=== PATIENT | male | born 1960 | race Caucasian/White ===

== ENCOUNTER 2024-07-04 23:28 | Emergency (ER) | payer MEDICARE, MEDICAID, SELFPAY ==
[2024-07-04 23:38] VITALS: PULSE 89; RESP 18; O2SAT 97; BMI 27.6
[2024-07-04 23:46] VITALS: BP 151/88; PULSE 98; RESP 18; TEMP 36.9; O2SAT 96
--- NOTE | 2024-07-05 00:43 | PD.EDADULT ---
ED General RME/HPI General Chief complaint: Psychiatric Symptoms Stated complaint: DEPRESSION Time Seen by Provider: 07/05/24 00:43 Arrival date/time: 07/04/24 23:28 RME / HPI RME / HPI narrative: This section includes all my notes and documentations, including HPI, PE, and ED course. James Mcneal MD HPI: 63yo male with a history of schizoeffective depression, bipolar disorder, HTN, HLD BIBA from [facility] presents to the ED for a chief complaint of SI. Patient states he was discharged from a psychiatric facility yesterday morning. He states I want to get placed into a long-term psychiatric facility . He endorses he wants to harm himself by cutting his wrists or running in front of a car on the highway. He endorses having occasional auditory hallucinations. Denies any HI or visual hallucinations. No other complaints reported. ROS: All negative except as documented in HPI. Physical Exam: General: Alert and oriented. Eyes: Conjunctivae and lids clear. PERRL. EOMI. ENT: No nasal congestion. Neck: Supple. Heart: RRR. Lungs: No respiratory distress. Good air movement. No rhonchi, wheezing, rales. Abdomen: Soft and nontender. Legs: No clubbing, cyanosis, edema. Skin: Warm and dry. Neuro: Alert and oriented X 3. Cranial nerves II to XII grossly normal. No peripheral motor deficits. I reviewed all diagnostic test results. Blood tests and urine tests unremarkable. At this point, diagnoses include suicidal ideation. Patient requested help with headache, he was given ibuprofen. Patient requested help with insomnia, he was given Ativan and Benadryl. Patient is medically clear for psychiatric evaluation. At 6 AM on 07/05/2024, the care of the patient was transferred to Dr. PRIETO. James Mcneal MD Related Data Home Medications ?Medication ?Instructions ?Recorded ?Confirmed trazodone 100 mg tablet 300 mg PO HS 12/09/20 01/31/24 lisinopril 10 mg tablet 10 mg PO QAM 01/31/24 01/31/24 olanzapine 10 mg tablet 10 mg PO QDAY 01/31/24 01/31/24 olanzapine 10 mg tablet 20 mg PO QPM 01/31/24 01/31/24 venlafaxine 150 mg 150 mg PO QAM 01/31/24 01/31/24 capsule,extended release 24 hr Allergies Allergy/AdvReac Type Severity Reaction Status Date / Time fluphenazine (From Prolixin) Allergy Severe Swelling Verified 06/06/23 17:43 of Lip/Tongue/Throat haloperidol (From Haldol) Allergy Severe CRIPPLES Verified 06/06/23 17:43 ME Review of Systems Review of Systems Systems Reviewed: All systems reviewed, normal except as documented Past Medical History Past Medical History NEUROLOGIC: Negative Neurological Disorders or Seizures CARDIAC: Positive Cardiac Disorders, Hypercholesterolemia and Hypertension; Negative Congestive Heart Failure RESPIRATORY: Positive Sleep Apnea; Negative Chronic Obstructive Pulmonary Disease (COPD) GASTROINTESTINAL: Positive Gastrointestinal Disorders GENITOURINARY: Negative Genitourinary Disorders or Renal Disease MUSCULOSKELETAL: Negative Musculoskeletal Disorders ENT: Positive Deafness ENDOCRINE: Negative Endocrine Disorders, Diabetes Mellitus Type 1 or Diabetes Mellitus Type 2 HEMATOLOGIC: Negative Blood Disorders PSYCHO/SOCIAL: Positive Schizophrenia, Bipolar Disorder, Depression and Anxiety OTHER HISTORY: Negative Blood Transfusions, Blood Transfusion Reaction, Anesthesia Reactions or Cancer Family History FAMILY HISTORY: Negative Family Cardiac Disorders Social History SMOKING STATUS: Light (< 1 pack/day) ED Exam Narrative Physical exam: As noted in HPI. Course Quality Measures none Orders Category Date Time Status 1799 [1799 Psychiatric Hold] NOW Care 07/05/24 00:45 Ordered Referral Psych Eval Stat Cons 07/05/24 00:43 Active Acetaminophen Stat Lab 07/05/24 01:06 Completed Alcohol, Blood Medical Stat Lab 07/05/24 01:06 Completed CBC Stat Lab 07/05/24 01:06 Completed CMP [Comprehensive Metabolic Panel] Stat Lab 07/05/24 01:06 Completed Drug Screen,Urine Stat Lab 07/05/24 01:03 Completed Free T4 (Free Thyroxine) Stat Lab 07/05/24 01:06 Completed Magnesium Stat Lab 07/05/24 01:06 Completed Salicylate Stat Lab 07/05/24 01:06 Completed TSH [Thyroid Stimulating Hormone] Stat Lab 07/05/24 01:06 Completed UA, C/S IF [Urinalysis, C/S if Indicated] Stat Lab 07/05/24 01:03 Completed DiphenhydrAMINE [Benadryl] Med 07/05/24 01:09 Discontinued 50 mg PO X1 ONE Ibuprofen Tab [Motrin Tab] Med 07/05/24 04:13 Once 800 mg PO X1 ONE LORazepam [Ativan] Med 07/05/24 01:09 Discontinued 2 mg PO X1 ONE Vital Signs Vital signs: Vital Signs Temperature 98.4 F 07/04/24 23:46 Pulse Rate 98 07/04/24 23:46 Respiratory Rate 18 07/04/24 23:46 Blood Pressure 151/88 H 07/04/24 23:46 Pulse Oximetry (%) 96 07/04/24 23:46 Oxygen Delivery Method Room Air 07/04/24 23:46 [facility] Patient data External records reviewed:: [facility] previous records (Per chart review, patient was seen here on 01/31/24 for suicidal ideation.) Clinical information provided by:: patient Social determinants that could affect healthcare access:: mental health Patient has the following chronic illnesses:: schizoeffective depression, bipolar disorder, HTN, HLD How is presenting disease/condition affected by chronic disease/condition?: caused by Evaluation data The following diagnostics were reviewed and interpreted by me:: lab results Lab and/or radiology exams considered but not ordered:: none Interpretation Summary: Normal diagnostics. Medications Medications considered but not ordered:: none Medication administrations:: Medication Administration History Ibuprofen (Ibuprofen Tab 400 Mg Tablet) 800 mg PO X1 ONE Stop: 07/05/24 04:14 Discontinued Medications Diphenhydramine HCl (Diphenhydramine 25 Mg Capsule) 50 mg PO X1 ONE Stop: 07/05/24 01:10 Last Admin: 07/05/24 01:26 Dose: 50 mg Documented By: RB Lorazepam (Lorazepam 0.5 Mg Tablet) 2 mg PO X1 ONE Stop: 07/05/24 01:10 Last Admin: 07/05/24 01:26 Dose: 2 mg Documented By: MICHELA Ibuprofen and Ativan and Benadryl Consultations Consultation(s) initiated? (list below): No Diagnosis Differential Diagnosis ED Complaint MDM: SI, HI, acute psychosis, schizoaffective disorder, avery, substance abuse Most likely diagnosis given after review of the tests above:: Suicidal ideation Admission Indicated Admission indicated?: not indicated Explain why admission is indicated or not indicated:: No psychiatric service here. Admission Request Was there a request for admission?: No Disposition Plan Disposition Plan: other (specify) (Care of the patient was transferred to Dr. PRIETO.) Medical Decision Making Differential Diagnosis Differential Diagnosis: SI, HI, acute psychosis, schizoaffective disorder, avery, substance abuse Lab Data 07/05/24 01:06 07/05/24 01:06 Labs: Lab Results 07/05/24 07/05/24 Range/Units 01:03 01:06 WBC 8.9 (3.8-10.6) Thou/mm3 RBC 5.08 (4.50-5.90) Miln/mm3 Hgb 14.8 (13.5-16.0) g/dL Hct 41.9 (41.0-53.0) % MCV 83 (80-100) fL MCH 29.1 (25.0-35.0) pg MCHC 35.3 (31.0-37.0) g/dl RDW Std Deviation 39.7 (35.1-43.9) fL Plt Count 221 (140-440) Thou/mm3 Neut % (Auto) 66 (37-80) % Lymph % (Auto) 20 (10-50) % [place] % (Auto) 10 (0-12) % Eos % (Auto) 3 (0-10) % Baso % (Auto) 0 (0-2.5) % Neut # (Auto) 5.9 (1.8-7.7) Thou/mm3 Lymph # (Auto) 1.8 (1.0-4.8) Thou/mm3 [place] # (Auto) 0.9 H (0.0-0.8) Thou/mm3 Eos # (Auto) 0.2 (0.0-0.5) Thou/mm3 Baso # (Auto) 0.0 (0.0-0.2) Thou/mm3 Immature Gran # (Auto) 0.03 H (0.00-0.00) Thou/mm3 Absolute Nucleated RBC 0.00 (0.00-0.00) Thou/mm3 Immature Gran % 0 (0-0) % Nucleated RBC % 0 (0) /100 WBC Sodium 136 (136-145) mMol/L Potassium 3.8 (3.4-5.1) mMol/L Chloride 103 (98-107) mMol/L Carbon Dioxide 22.1 (20.0-31.0) mMol/L Anion Gap 11 (7-16) BUN 10 (9-23) mg/dL Creatinine 0.8 (0.6-1.3) mg/dL Estim Creat Clear Calc 95.7 (>60) mL/min eGFR > 60 (60 - ) See Note BUN/Creatinine Ratio 13 (12-20) Ratio Glucose 118 H (74-106) mg/dL Calculated Osmolality 271 L (275-295) Calcium 9.0 (8.3-10.6) mg/dL Corrected Calcium 9.0 (8.5-10.1) mg/dL Magnesium 1.8 (1.6-2.6) mg/dL Total Bilirubin 0.5 (0.3-1.2) mg/dL AST 18 (0-34) U/L ALT 23 (10-49) U/L Alkaline Phosphatase 121 H (46-116) U/L Total Protein 7.2 (5.7-8.2) gm/dL Albumin 4.1 (3.4-4.8) gm/dL Globulin 3.1 (2.3-3.5) gm/dL Albumin/Globulin Ratio 1.3 (1.2-2.2) TSH 2.23 (0.55-4.78) uIU/mL Free T4 1.23 (0.89-1.76) ng/dL Ur Collection Type Clean Catch Urine Color Lt-Yellow (Lt Yel-Yel) Urine Clarity Clear (Clear/Hazy) Urine pH 6.0 (5.0-7.0) Ur Specific [place] 1.009 (1.001-1.035) Urine Protein Negative (Neg - Trace) Urine Glucose (UA) Negative (Negative) Urine Ketones Negative (Negative) Urine Blood Negative (Negative) Urine Nitrite Negative (Negative) Urine Bilirubin Negative (Negative) Urine Urobilinogen (Auto) Negative (0.0-1.0) mg/dL Ur Leukocyte Esterase Negative (Negative) Urine RBC 2 (0-3) /hpf Urine WBC 1 (0-5) /hpf Ur Squamous Epith Cells 0 (0-5) /hpf Urine Bacteria None (None) Ur Culture Indicated? Not Indicated Salicylates < 3.0 mg/dL Urine Opiates Screen Negative (Negative) Urine Fentanyl Screen Negative (Negative) Acetaminophen < 2.0 L (10.0-20.0) mcg/mL Ur Barbiturates Screen Negative (Negative) U Amphetamin/Meth Scrn Negative (Negative) U Benzodiazepines Scrn Negative (Negative) U Cocaine Metab Screen Negative (Negative) U Marijuana (THC) Screen Negative (Negative) Ethyl Alcohol 14.6 H (0-10.0) mg/dL Discharge Plan Prescriptions/Referrals Prescriptions/Med Rec: No Action trazodone 100 mg tablet 300 mg PO HS venlafaxine 150 mg capsule,extended release 24hr 150 mg PO QAM olanzapine 10 mg tablet 20 mg PO QPM olanzapine 10 mg tablet 10 mg PO QDAY lisinopril 10 mg tablet 10 mg PO QAM Referrals: Claudia Vogel PA-C [Primary Care Provider] - In 1 week Problem List Clinical Impression: Suicidal ideation Patient/Caregiver Discharge Instructions Print Language: Martiniquais
[2024-07-05 01:12] LABS: Collection Type, Urine Clean Catch; Squamous Epithelial Cell,Urine 0 /hpf (0-5)
[2024-07-05 01:16] LABS: Basophils % (Auto) 0 % (0-2.5); Eosinophils # (Auto) 0.2 Thou/mm3 (0.0-0.5); Eosinophils % (Auto) 3 % (0-10); Hematocrit 41.9 % (41.0-53.0); Hemoglobin 14.8 g/dL (13.5-16.0); Immature Granulocytes % (Auto) 0 % (0-0); Immature Granulocytes Auto 0.03 Thou/mm3 (0.00-0.00); Lymphocytes # (Auto) 1.8 Thou/mm3 (1.0-4.8); Lymphocytes % (Auto) 20 % (10-50); Mean Corpuscular HGB Conc 35.3 g/dl (31.0-37.0); Mean Corpuscular Hemoglobin 29.1 pg (25.0-35.0); Mean Corpuscular Volume 83 fL (80-100); Monocytes # (Auto) 0.9 Thou/mm3 (0.0-0.8); Monocytes % (Auto) 10 % (0-12); Neutrophils # (Auto) 5.9 Thou/mm3 (1.8-7.7); Neutrophils % (Auto) 66 % (37-80); Nucleated Red Blood Cell % 0 /100 WBC (0); Platelet Count 221 Thou/mm3 (140-440); RDW Standard Deviation 39.7 fL (35.1-43.9); Red Blood Count 5.08 Miln/mm3 (4.50-5.90); White Blood Count 8.9 Thou/mm3 (3.8-10.6)
[2024-07-05 01:18] LABS: Bilirubin,Urine Negative (Negative); Blood,Urine Negative (Negative); Clarity,Urine Clear (Clear/Hazy); Color,Urine Lt-Yellow (Lt Yel-Yel); Culture Indicated,Urine Not Indicated; Glucose, Urine Negative (Negative); Ketones,Urine Negative (Negative); Leukocyte Esterase,Urine Negative (Negative); Nitrite,Urine Negative (Negative); Protein,Urine Negative (Neg - Trace); RBC,Urine 2 /hpf (0-3); Specific Gravity,Urine 1.009 (1.001-1.035); Urobilinogen,Urine Negative mg/dL (0.0-1.0); WBC,Urine 1 /hpf (0-5)
[2024-07-05] MEDS: LORazepam 0.5 MG TABLET 2 MG PO (01:26)
[2024-07-05] MEDS: DiphenhydrAMINE 25 MG CAPSULE 50 MG PO (01:26)
[2024-07-05 01:28] LABS: Amphetamine/Methamp Scrn,U Negative (Negative); Barbiturate Screen,Urine Negative (Negative); Benzodiazepines Screen,Urine Negative (Negative); Benzoylecgonine Screen, Ur Negative (Negative); Fentanyl Screen,Urine Negative (Negative); Opiate Screen,Urine Negative (Negative); THC Screen,Urine Negative (Negative)
[2024-07-05 01:45] LABS: Acetaminophen < 2.0 mcg/mL (10.0-20.0); Alanine Aminotransferase 23 U/L (10-49); Albumin, Serum 4.1 gm/dL (3.4-4.8); Albumin/Globulin Ratio 1.3 (1.2-2.2); Alcohol, Blood Medical 14.6 mg/dL (0-10.0); Alkaline Phosphatase 121 U/L (46-116); Anion Gap 11 (7-16); Aspartate Amino Transferase 18 U/L (0-34); BUN/Creatinine Ratio 13 Ratio (12-20); Bilirubin,Total 0.5 mg/dL (0.3-1.2); Blood Urea Nitrogen 10 mg/dL (9-23); Carbon Dioxide 22.1 mMol/L (20.0-31.0); Chloride 103 mMol/L (98-107); Creatinine (Component) 0.8 mg/dL (0.6-1.3); Estimated Creatinine Clearance 95.7 mL/min (>60); Free T4 (Free Thyroxine) 1.23 ng/dL (0.89-1.76); Globulin 3.1 gm/dL (2.3-3.5); Glucose 118 mg/dL (74-106); Magnesium 1.8 mg/dL (1.6-2.6); Osmolality,Calculated 271 (275-295); Potassium 3.8 mMol/L (3.4-5.1); Salicylate < 3.0 mg/dL; Sodium 136 mMol/L (136-145); Thyroid Stimulating Hormone 2.23 uIU/mL (0.55-4.78); Total Protein 7.2 gm/dL (5.7-8.2); eGFR > 60 See Note
[2024-07-05] MEDS: IBUPROFEN TAB 400 MG TABLET 800 MG PO (04:32)
[2024-07-05 07:32] VITALS: BP 143/92; PULSE 89; RESP 18; TEMP 36.6; O2SAT 95
--- NOTE | 2024-07-05 07:36 | EDNOTE_ITS ---
Emergency Room Addendum Addendum Narrative: 0600: Care assumed from Dr. Mcneal, the previous shift emergency physician. Past medical, surgical, social and family history reviewed. Vitals and home medications reviewed. I will assume the care of the patient at this time, pending mental health evaluation. Please refer to the emergency department record for history and examination from initial visit.?The following addendum documentation note is intended to reflect any pending information, findings, or radiology results not included in the patient?s initial chart. Nursing notes reviewed by me. Vital signs reviewed by me. [address] medical records reviewed by me. Patient has had multiple visits for suicidal ideation and was last evaluated here on 01/31/2024. 0818: ASW has met and evaluated the patient in the ED. States patient is cleared to go home and has an appointment scheduled with his psychiatrist Dr. Stanton tomorrow 07/05/2024 at 4:00PM at [facility]. Will DC home. DISPOSITION: Home DIAGNOSIS: Suicidal ideation
--- NOTE | 2024-07-05 08:24 | PC.CC ---
Patient is a 63 year-old male who presents to the hospital for a mental health evaluation for suicidal ideations. Patient was placed on a 1799 on 07/05/2024 at 0045. Brain met with patient [id number] to complete assessment. ASW introduced self, role, and reason for assessment. ASW disclosed limits of confidentiality as well. Patient appeared alert and oriented to self, place, and situation. Patient was pleasant; his behavior euthymic; patient made appropriate eye contact throughout assessment. Patient?s thought process was linear and organized. No signs of delusions, paranoid or V/h. Patient reports he was released from [facility] yesterday evening after being on a 30 day hold. Patient expressed he was nervous after being on a hold for so long and began to have suicidal ideations with plan to run on the highway and get his by a diesel truck. ASW explored with patient what has stopped him from his plan. Patient reports he would not want to ruin someone?s life as they would be traumatized. Patient reports he often has suicidal ideations and auditory hallucination. Patient reports Gita has been taking to him for the past 35 years. Patient stated, ?Gita calls my name once in a while and tells me to do good.? Patient reports he has a mental health diagnosis of schizoaffective disorder bipolar type. Patient receives outpatient mental health services with [facility] and is seen by Dr. Stanton for psychiatric services. Patient takes psychotropic medications: Trazadone 20mg, Zyprexa 30mg, Prozac 10mg, Gabapentin 3x/day 600mg. Patient informed this technical writer and editor he is compliant with all his medications and they are provided by staff at [facility]. At the time of encounter with this technical writer and editor the patient is denying suicidal and homicidal ideations; visual and auditory hallucinations. Patient reports he has had 6 suicide attempts in his life time and none have been successful and this is a sign from God that he needs to stay alive. Patient reports he is ready to go back to [facility] and was just anxious about going back yesterday due to the long car ride. Patient reports his coping skills when he is having suicidal ideations are listening to music, reading his books, and his best friend roommate Michael. Patient reports he knows he can reach out to help and call the Warm Line [phone] or return to the hospital for help. ASW explored with patient if he was open to establishing safety plan and patient reports he is open to safety plan. Patient was low risk on the [place] Screening. Upon clinical consultation with Evette KELLEY the patient does not meet criteria for 5150-Hold. ASW to establish safety plan with patient. ASWBess established safety plan with patient. Patient will be returning back to [facility] and staff are to continue to keep his medications locked in a secure area, patient has an appointment tomorrow 07/06/2024 at 4:00pm at [facility] staff to ensure he attends his appointment, patient was provided with [facility] Resource Guide with Warm Line number and advised to return to the hospital if begins to have suicidal ideations. ASW provided update of established discharge of safety plan to Dr. Allen, manager air Kris, and bedside ROBBY Adame.
== END 2024-07-05 09:13 | disposition intermediate care facility (04) ==
PROVIDERS: Emergency Provider Emergency Medicine; PCP Physician Assistant
DX: R45.851 Suicidal ideations (principal); F20.9 Schizophrenia, unspecified; F31.9 Bipolar disorder, unspecified; R51.9 Headache, unspecified; G47.00 Insomnia, unspecified; I10 Essential (primary) hypertension; E78.5 Hyperlipidemia, unspecified; F41.9 Anxiety disorder, unspecified; Z91.51 Personal history of suicidal behavior; F17.210 Nicotine dependence, cigarettes, uncomplicated; Z88.8 Allergy status to other drugs, medicaments and biological substances
CPT/HCPCS: 36415; 80053; 80307; 80320; 80329; 81001; 83735; 84439; 84443; 85025; 90839; 96127; 99284; A9270; G0480

== ENCOUNTER 2024-07-14 14:33 | Emergency (ER) | payer MEDICARE, SELFPAY ==
[2024-07-14 14:50] VITALS: PULSE 98; RESP 97; BMI 28.8
[2024-07-14 14:57] VITALS: BP 134/94; PULSE 104; RESP 18; TEMP 36.9; O2SAT 94
--- NOTE | 2024-07-14 15:25 | PD.EDSUICD ---
ED Psych RME/HPI General Chief Complaint: Suicidal Stated Complaint: SI, MY BRAIN IS DETERIORATING Time Seen by Provider: 07/14/24 15:23 Arrival date/time: 07/14/24 14:33 RME / HPI RME / HPI Narrative: 63-year-old male patient with significant history of mental health problem, suicidal ideation in the past, was brought in by EMS for evaluation regarding suicidal ideation. Patient told me that he is just discharged from mental facility more than a week ago and since then has been having worsening suicidal ideation. Patient is planning to kill himself by using a sharp knife. Denies any homicidal ideation. Denies any other complaints patient been taking his psych medication with good compliance. Related Data Home Medications ?Medication ?Instructions ?Recorded ?Confirmed trazodone 100 mg tablet 300 mg PO HS 12/09/20 01/31/24 lisinopril 10 mg tablet 10 mg PO QAM 01/31/24 01/31/24 olanzapine 10 mg tablet 10 mg PO QDAY 01/31/24 01/31/24 olanzapine 10 mg tablet 20 mg PO QPM 01/31/24 01/31/24 venlafaxine 150 mg 150 mg PO QAM 01/31/24 01/31/24 capsule,extended release 24 hr Allergies Allergy/AdvReac Type Severity Reaction Status Date / Time fluphenazine (From Prolixin) Allergy Severe Swelling Verified 07/14/24 14:53 of Lip/Tongue/Throat haloperidol (From Haldol) Allergy Severe CRIPPLES Verified 07/14/24 14:53 ME Review of Systems Review of Systems Narrative Review of Systems: Review of system reviewed and within normal limits except mentioned in HPI ED Exam Narrative Physical exam: Normal obstruction Course Quality Measures none Orders Category Date Time Status 1799 Psychiatric Hold NOW Care 07/14/24 15:30 Ordered Acetaminophen Stat Lab 07/14/24 16:48 Completed Alcohol, Blood Medical Stat Lab 07/14/24 16:48 Completed CBC Stat Lab 07/14/24 16:48 Completed CMP [Comprehensive Metabolic Panel] Stat Lab 07/14/24 16:48 Completed Drug Screen,Urine Stat Lab 07/14/24 15:50 Completed Salicylate Stat Lab 07/14/24 16:48 Completed Urinalysis Stat Lab 07/14/24 15:50 Completed LORazepam [Ativan] Med 07/14/24 18:07 Discontinued 1 mg PO X1 ONE Vital Signs Vital signs: Vital Signs Temperature 98.4 F 07/14/24 14:57 Pulse Rate 104 H 07/14/24 14:57 Respiratory Rate 18 07/14/24 14:57 Blood Pressure 134/94 H 07/14/24 14:57 Pulse Oximetry (%) 94 L 07/14/24 14:57 Oxygen Delivery Method Room Air 07/14/24 14:57 Psych MDM Narrative MDM Narrative:: 63-year-old male patient with significant history of mental health problem, suicidal ideation in the past, was brought in by EMS for evaluation regarding suicidal ideation. Patient told me that he is just discharged from mental facility more than a week ago and since then has been having worsening suicidal ideation. Patient is planning to kill himself by using a sharp knife. Denies any homicidal ideation. Denies any other complaints patient been taking his psych medication with good compliance. Patient's workup significant for slight leukocytosis of 13.6. Drug tox toxicity positive for methamphetamine Patient is medically cleared for crisis intervention Care transferred to Dr Mcneal at 11 pm for final disposition Patient data External records reviewed:: None Clinical information provided by:: patient Social determinants that could affect healthcare access:: mental health Patient has the following chronic illnesses:: Hypertension How is presenting disease/condition affected by chronic disease/condition?: exacerbated by Evaluation data The following diagnostics were reviewed and interpreted by me:: lab results Lab and/or radiology exams considered but not ordered:: None Interpretation Summary: See results [facility] Medications / Prescriptions Medications or Prescriptions considered but not ordered:: None Ativan Medication administrations:: Medication Administration History Discontinued Medications Lorazepam (Lorazepam 0.5 Mg Tablet) 1 mg PO X1 ONE Stop: 07/14/24 18:08 Last Admin: 07/14/24 18:19 Dose: 1 mg Documented By: 81 Consultations Consultation(s) initiated? (list below): No Diagnosis Psych Differential Diagnosis: acute psychosis, chronic schizophrenia and suicidal ideation Most likely diagnosis given after review of the tests above:: Suicidal ideation Admission Indicated Admission indicated?: not indicated Admission Request Was there a request for admission?: No Disposition Plan Disposition Plan: other (specify) (Pending final disposition) Discharge Plan Prescriptions/Referrals Prescriptions/Med Rec: No Action trazodone 100 mg tablet 300 mg PO HS venlafaxine 150 mg capsule,extended release 24hr 150 mg PO QAM olanzapine 10 mg tablet 20 mg PO QPM olanzapine 10 mg tablet 10 mg PO QDAY lisinopril 10 mg tablet 10 mg PO QAM Referrals: No Primary/Family,Physician [Primary Care Provider] - In 1 week Problem List Clinical Impression: Suicidal ideation Patient/Caregiver Discharge Instructions Print Language: Yoruba
[2024-07-14 16:00] LABS: Collection Type, Urine Clean Catch
[2024-07-14 16:22] LABS: Amphetamine/Methamp Scrn,U Positive (Negative); Barbiturate Screen,Urine Negative (Negative); Benzodiazepines Screen,Urine Negative (Negative); Benzoylecgonine Screen, Ur Negative (Negative); Fentanyl Screen,Urine Negative (Negative); Opiate Screen,Urine Negative (Negative); THC Screen,Urine Negative (Negative)
[2024-07-14 16:30] LABS: Bilirubin,Urine Negative (Negative); Blood,Urine Trace (Negative); Clarity,Urine Clear (Clear/Hazy); Color,Urine Yellow (Lt Yel-Yel); Glucose, Urine Negative (Negative); Ketones,Urine 1+ (Negative); Leukocyte Esterase,Urine Negative (Negative); Nitrite,Urine Negative (Negative); Protein,Urine Trace (Neg - Trace); RBC,Urine 3 /hpf (0-3); Specific Gravity,Urine 1.023 (1.001-1.035); Squamous Epithelial Cell,Urine < 1 /hpf (0-5); Urobilinogen,Urine Negative mg/dL (0.0-1.0); WBC,Urine 1 /hpf (0-5)
[2024-07-14 17:04] LABS: Basophils # (Auto) 0.1 Thou/mm3 (0.0-0.2); Basophils % (Auto) 1 % (0-2.5); Eosinophils # (Auto) 0.4 Thou/mm3 (0.0-0.5); Eosinophils % (Auto) 3 % (0-10); Hematocrit 45.7 % (41.0-53.0); Hemoglobin 15.7 g/dL (13.5-16.0); Immature Granulocytes % (Auto) 0 % (0-0); Immature Granulocytes Auto 0.05 Thou/mm3 (0.00-0.00); Lymphocytes # (Auto) 2.3 Thou/mm3 (1.0-4.8); Lymphocytes % (Auto) 17 % (10-50); Mean Corpuscular HGB Conc 34.4 g/dl (31.0-37.0); Mean Corpuscular Hemoglobin 29.2 pg (25.0-35.0); Mean Corpuscular Volume 85 fL (80-100); Monocytes # (Auto) 1.7 Thou/mm3 (0.0-0.8); Monocytes % (Auto) 12 % (0-12); Neutrophils # (Auto) 9.2 Thou/mm3 (1.8-7.7); Neutrophils % (Auto) 68 % (37-80); Nucleated Red Blood Cell % 0 /100 WBC (0); Platelet Count 300 Thou/mm3 (140-440); RDW Standard Deviation 43.5 fL (35.1-43.9); Red Blood Count 5.38 Miln/mm3 (4.50-5.90); White Blood Count 13.6 Thou/mm3 (3.8-10.6)
[2024-07-14 17:34] LABS: Acetaminophen < 2.0 mcg/mL (10.0-20.0); Alanine Aminotransferase 10 U/L (10-49); Albumin, Serum 4.4 gm/dL (3.4-4.8); Albumin/Globulin Ratio 1.3 (1.2-2.2); Alcohol, Blood Medical < 3.0 mg/dL (0-10.0); Alkaline Phosphatase 123 U/L (46-116); Anion Gap 5 (7-16); Aspartate Amino Transferase 13 U/L (0-34); BUN/Creatinine Ratio 13 Ratio (12-20); Bilirubin,Total 0.5 mg/dL (0.3-1.2); Blood Urea Nitrogen 10 mg/dL (9-23); Calcium 9.3 mg/dL (8.3-10.6); Calcium (Corrected) 9.3 mg/dL (8.5-10.1); Carbon Dioxide 27.8 mMol/L (20.0-31.0); Chloride 105 mMol/L (98-107); Creatinine (Component) 0.8 mg/dL (0.6-1.3); Estimated Creatinine Clearance 102.3 mL/min (>60); Globulin 3.3 gm/dL (2.3-3.5); Glucose 97 mg/dL (74-106); Osmolality,Calculated 274 (275-295); Potassium 3.9 mMol/L (3.4-5.1); Salicylate < 3.0 mg/dL; Sodium 138 mMol/L (136-145); Total Protein 7.7 gm/dL (5.7-8.2); eGFR > 60 See Note
[2024-07-14] MEDS: LORazepam 0.5 MG TABLET 1 MG PO (18:19)
[2024-07-14 19:39] VITALS: BP 111/64; PULSE 73; RESP 16; TEMP 36.4; O2SAT 94
--- NOTE | 2024-07-14 23:43 | PC.NURSE ---
Pt has been sleeping. up twice ambulated
[2024-07-15] VITALS (7 sets, daily range): BP systolic 110–143; BP diastolic 70–92; PULSE 60–110; RESP 18–19; TEMP 36.4–36.9; O2SAT 95–100
--- NOTE | 2024-07-15 05:38 | PD.EDADDENDU ---
Emergency Room Addendum Addendum Narrative: I took over the care from Yobani Solis NP at _11PM_ on _07/14/24_. See previous notes for complete H & P and ED course. On 1798 hold and waiting for evaluation by our ED child care sitter. At 6 AM , the care of the patient was transferred to Dr. Burnett. During my watch, the patient remained stable. James Mcneal MD
--- NOTE | 2024-07-15 06:16 | PD.EDADDENDU ---
Emergency Room Addendum Addendum Narrative: 0600: Care assumed from Dr. Mcneal, the previous shift emergency physician. Past medical, surgical, social and family history reviewed. Vitals and home medications reviewed. I will assume the care of the patient at this time, patient on a 1799 hold, pending psychiatric placement. Please refer to the emergency department record for history and examination from initial visit.? The patient was placed in ED observation care at 07/15/2024 at 0600 hours. The patient was placed in ED observation care because of undifferentiated decompensated behavioral health evaluation, no behavioral health bed available. The patients past medical history, social history, and family history were reviewed. The plan of care will include serial examinations. While in ED observation the patient will have access to water, food, and personal hygiene. If the patient takes home medication(s), they will be continued in ED observation. 0856: Reviewed records, patient is on Olanzapine 20 mg and Venlafaxine 50 mg, ordered medications. Physical exam by me shows patient under no acute distress at this time. 1800: Patient was signed out to Dr. Mcneal. Past medical, surgical, social and family history reviewed. Vitals and home medications reviewed. Results and treatment plan discussed. They will assume the care of the patient at this time and will follow the patient, pending placement. ED observation care ended at 07/15/2024 at 1800 hours.
--- NOTE | 2024-07-15 08:01 | PC.CC ---
Patient is a 63 year-old male who presents to the hospital for a mental health evaluation for suicidal ideations with plan and intention. Patient was placed on a 1799 on 07/14/2024 at 1530. Brain met with patient [id number] to complete assessment. ASW introduced self, role, and reason for assessment. ASW disclosed limits of confidentiality as well. Patient appeared alert and oriented to self, place, and situation. Patient?s mood appeared to be depressed as patient was tearful with a flat affect and disinhibited; she was cooperative; made appropriate eye contact; patient had good insight and judgement. Patient?s thought process was linear and organized. No signs of delusions, paranoid or V/h. Patient reports yesterday he began to have suicidal ideations with plan to get a knife and cut his wrist. ASW explored with patient what had stopped him. Patient stated, ?I couldn?t get to the knife as it was locked.? ASW discussed with patient if there was an event the led him to start having the suicidal ideations. Patient stated, ?The deterioration in my mind, I don?t want to live anymore.? At the time of encounter the patient continues to have suicidal ideations. Patient reports to having auditory hallucinations and hears Gita speaking to him. Patient denied homicidal ideations and visual hallucinations. Patient reports he has a mental health diagnosis of schizoaffective disorder bipolar type. Patient receives outpatient mental health services with [facility] and is seen by Dr. Stanton for psychiatric services. Patient takes psychotropic medications: Trazadone 20mg, Zyprexa 30mg, Prozac 10mg, Gabapentin 3x/day 600mg. Patient informed this sign writer letterer or painter he is compliant with all his medications and they are provided by staff at [facility]. Patient reports he was released from [facility] yesterday evening after being on a 30 day hold. Patient is able to come ambulate independently and does not require assistance with his ADLs. Patient does not use any DME. Patient scored High-Risk on the [place] Screening. ASW explored with patient safety planning. Patient reports he is not willing to safety plan as he will ?kill myself.? Upon clinical consultation with Evette KELLEY the patient will be placed on a 5150-hold for Danger to Self. Patient is not willing to engage in a viable safety plan. ASW provided update of discharge plan to LPS facility to Dr. Burnett, petrology teacher Wendi and bedside RN Socorro. ASW provided advisement to patient of 5150-hold. ASW to send referral to LPS Facility via [employer].
[2024-07-15] MEDS: OLANZapine 5 MG TABLET 10 MG PO ×2 (09:23→20:38)
[2024-07-15] MEDS: VENLAFAXINE XR 37.5 MG CAPCR PO (09:23)
--- NOTE | 2024-07-15 09:37 | PC.NURSE ---
Received and began patient care, patient is currently sitting in [facility] drinking water. Patient took medications that were prescribed by MD. Patient is aware of plans of placement. Patient is alert, oriented and ambulatory. Patient is cooperative.
--- NOTE | 2024-07-15 10:35 | PC.CC ---
Addendum entered by Bess Jerome 07/15/24 11:03: 1103 ASW contacted [facility] who reports they will contact us back if they are able to accept they are waiting for a bed to be d/c. Original Note: 1042 [facility]- At capacity in queue. 1041 [facility]-At capacity patient remains in queue. 1040 [facility]-Patient is in queue no male beds available. 1037 [facility]-No answer 1035 [facility]-they might have an opening requested a call back. Papi Soria made contact with ASW and report that they are considering patient.
--- NOTE | 2024-07-15 13:16 | PC.CC ---
Addendum entered by Bess Jerome 07/15/24 13:25: 1321 Papi Soria reports their doctor is declining at this time due to past notes but was unable to elaborate. Original Note: [facility]-reports they have no male open beds. ASW made contact with [facility] who reports they still don't have open beds.
--- NOTE | 2024-07-15 18:14 | PD.EDADDENDU ---
Emergency Room Addendum <Mildred Bush - Last Filed: 07/15/24 18:20> Addendum Narrative: I took over the care from previous shift physician at 6b PM on 07/15/2024. See previous notes for complete H & P and ED course. I reviewed all diagnostic test results. My interpretation of the EKG is My interpretation of the chest x-ray is My review of the CT report is Blood tests and urine tests Diagnoses include: Treatment here included Not yet done: I discussed the case with our hospitalist. About the presentation and exam and diagnostics and treatments here. And need of further care in the hospital. Will accept the patient. Not yet done: Based on my best medical judgment, made decision no further evaluation or treatment indicated at this time. Patient understands and agrees to the discharge instructions customized and printed, see below. James Mcneal MD <James Mcneal MD - Last Filed: 07/16/24 05:12> Addendum Narrative: I took over the care from previous shift physician at 6 PM on 07/15/2024. See previous notes for complete H & P and ED course. Waiting for inpatient psychiatric unit. At 6 AM , the care of the patient was transferred to Dr. Burnett. During my watch, the patient remained stable. James Mcneal MD
[2024-07-15] MEDS: LORazepam 0.5 MG TABLET 2 MG PO (20:38)
[2024-07-16 05:53] VITALS: BP 142/84; PULSE 96; RESP 17; TEMP 36.6; O2SAT 95
--- NOTE | 2024-07-16 06:18 | EDNOTE_ITS ---
Emergency Room Addendum Addendum Narrative: 0600: Care assumed from Dr. Mcneal, the previous shift emergency physician. Past medical, surgical, social and family history reviewed. Vitals and home medications reviewed. I will assume the care of the patient at this time, pending psychiatric placement. Please refer to the emergency department record for history and examination from initial visit.? The patient was placed in ED observation care at 07/16/2024 at 0600 hours. The patient was placed in ED observation care because of undifferentiated decompensated behavioral health evaluation, no behavioral health bed available. The patients past medical history, social history, and family history were reviewed. The plan of care will include serial examinations. While in ED observation the patient will have access to water, food, and personal hygiene. If the patient takes home medication(s), they will be continued in ED observation. Physical exam by me shows patient under no acute distress at this time. 0935: Patient on a 5150 hold. Patient got accepted for placement by Dr. Granger at [facility], Unit E. ETA 1150 hours. 1150: EMS here to transport the patient to [facility]. ED observation care ended at 07/16/2024 at 1150 hours.
[2024-07-16 08:00] VITALS: BP 118/78; PULSE 89; RESP 18; TEMP 36.7; O2SAT 95
[2024-07-16 08:12] VITALS: BP 145/104; PULSE 97; RESP 18; TEMP 36.8; O2SAT 98
--- NOTE | 2024-07-16 08:31 | PC.CC ---
0831[facility] updated packet referrals via [employer] [facility] to [facility] facilities. Pending response.
--- NOTE | 2024-07-16 09:30 | PC.CC ---
0912- Pt accepted to [facility]. Accepting Provider is Dr. Granger, Unit E, pt is good to leave anytime after 12pm per Admissions Ben. SS arrange transportation.
--- NOTE | 2024-07-16 09:47 | PC.CC ---
SS update: transportation scheduled for 1150 with [facility]. Patient notified he was accepted to [facility]. ED Provider and bed side nurse updated. Patient requested [facility] staff to be made aware of d/c location.
== END 2024-07-16 11:10 ==
PROVIDERS: Nurse Practitioner Family; Emergency Provider Emergency Medicine
DX: R45.851 Suicidal ideations (principal); Z75.1 Person awaiting admission to adequate facility elsewhere
CPT/HCPCS: 36415; 80053; 80307; 80320; 80329; 81001; 85025; 90839; 96127; 99285; A9270; G0480

== ENCOUNTER 2024-10-05 12:07 | Emergency (ER) | payer MEDICARE, SELFPAY ==
[2024-10-05 12:12] VITALS: BP 169/106; PULSE 134; RESP 20; O2SAT 99
--- NOTE | 2024-10-05 12:52 | PD.EDPSYCH ---
ED Psych RME/HPI General Chief Complaint: Psychiatric Symptoms Stated Complaint: MEDICAL CLEARANCE Time Seen by Provider: 10/05/24 12:19 Arrival date/time: 10/05/24 12:07 RME / HPI RME / HPI Narrative: 64-year-old male patient with significant history of schizophrenia, was brought in by EMS/law enforcement for 5150 hold. Apparently patient was arrested after the sap bw architect of the facility reported to the police because he was slamming the door. When the police arrived patient was asked if he wants to hurt somebody or hurt himself and he answered yes during the time. Patient also did not take his morning medication because he just put in his pocket and he was planning to take it anytime today. Currently on my initial evaluation patient is pleasant answer question appropriately, and he denies any homicidal or suicidal ideation. He wanted to go back to the place. Patient was not violent. Related Data Home Medications ?Medication ?Instructions ?Recorded ?Confirmed trazodone 100 mg tablet 300 mg PO HS 12/09/20 01/31/24 lisinopril 10 mg tablet 10 mg PO QAM 01/31/24 10/05/24 acetaminophen 500 mg tablet 500 mg PO 2XD PRN pain 10/05/24 10/05/24 gabapentin 300 mg capsule 300 mg PO .COMPLEX 10/05/24 10/05/24 hydroxyzine pamoate 25 mg capsule 25 mg PO BID 10/05/24 10/05/24 ibuprofen 400 mg tablet 400 mg PO 2XD PRN fever or pain 10/05/24 10/05/24 metformin 500 mg tablet 500 mg PO QMORNING 10/05/24 10/05/24 olanzapine 5 mg tablet 5 mg PO QDAY 10/05/24 10/05/24 paliperidone 3 mg tablet,extended 6 mg PO QMORNING 10/05/24 10/05/24 release 24 hr polyethylene glycol 3350 17 g PO QDAY 10/05/24 gram/dose oral powder (ClearLax) trazodone 300 mg tablet 200 mg PO QPM 10/05/24 10/05/24 venlafaxine 75 mg capsule,extended 225 mg PO QDAY 10/05/24 10/05/24 release 24 hr Allergies Allergy/AdvReac Type Severity Reaction Status Date / Time fluphenazine (From Prolixin) Allergy Severe Swelling Verified 10/05/24 12:21 of Lip/Tongue/Throat haloperidol (From Haldol) Allergy Severe CRIPPLES Verified 10/05/24 12:21 ME Review of Systems Review of Systems Narrative Review of Systems: Review of system reviewed and within normal limits except mentioned in HPI ED Exam Narrative Physical exam: VITAL SIGNS: Reviewed. GENERAL APPEARANCE: Alert and interactive, follows commands, no acute distress, HEAD AND FACE: Non-traumatic. ENT: PERRL, pink conjunctivitis, eyelid no trauma, Mucous membrane moist. NECK: Supple, nontender, no nuchal rigidity. CHEST: No tenderness, no crepitus, no paradoxical movement, no retractions. LUNGS: Clear, well ventilated, symmetric, no rales, no wheezing, no ronchi, no stridor, good breath sounds bilaterally. HEART: Regular rate, regular rhythm, no murmur, no gallops. ABDOMEN: Soft, positive bowel sounds, nondistended, no guarding, nontender, no rebound, no masses, RECTAL: Deferred. GENITAL: Deferred. NEUROLOGICAL: Gross motor function intact sensory function intact, Appropriate for age. MUSCULOSKELETAL: low back nontender, full range of motion. EXTREMITIES: Nontender, full range of motion. SKIN: Color pink, dry, no rash, no lacerations, no abrasions, no contusions. LYMPHATICS: Deferred. Course Quality Measures none Orders Category Date Time Status Acetaminophen Stat Lab 10/05/24 12:51 Ordered Alcohol, Blood Medical Stat Lab 10/05/24 12:51 Ordered CBC Stat Lab 10/05/24 12:51 Ordered CMP [Comprehensive Metabolic Panel] Stat Lab 10/05/24 12:51 Ordered Drug Screen,Urine Stat Lab 10/05/24 13:49 Completed Urinalysis Stat Lab 10/05/24 13:49 Completed Vital Signs Vital signs: Vital Signs Pulse Rate 134 H 10/05/24 12:12 Respiratory Rate 20 10/05/24 12:12 Blood Pressure 169/106 H 10/05/24 12:12 Pulse Oximetry (%) 99 10/05/24 12:12 Oxygen Delivery Method Room Air 10/05/24 12:12 Psych MDM Narrative MDM Narrative:: 64-year-old male patient with significant history of schizophrenia, was brought in by EMS/law enforcement for 5150 hold. Apparently patient was arrested after the sap bw architect of the facility reported to the police because he was slamming the door. When the police arrived patient was asked if he wants to hurt somebody or hurt himself and he answered yes during the time. Patient also did not take his morning medication because he just put in his pocket and he was planning to take it anytime today. Currently on my initial evaluation patient is pleasant answer question appropriately, and he denies any homicidal or suicidal ideation. He wanted to go back to the place. Patient was not violent. Patient refused blood draw. Urinalysis negative for drug toxicity test. Patient is medically cleared for crisis intervention. Patient was seen and evaluated by high school social studies teacher, and 5150 hold was rescinded. Patient is stable for discharge home patient is very cooperative, and promised to me that he will not be banging the door in the facility. Patient data External records reviewed:: None Clinical information provided by:: patient Social determinants that could affect healthcare access:: mental health Patient has the following chronic illnesses:: Hypertension How is presenting disease/condition affected by chronic disease/condition?: uneffected by Evaluation data The following diagnostics were reviewed and interpreted by me:: lab results Lab and/or radiology exams considered but not ordered:: None Interpretation Summary: See results MDM Medications / Prescriptions Medications or Prescriptions considered but not ordered:: None none Medication administrations:: None Consultations Consultation(s) initiated? (list below): No Diagnosis Psych Differential Diagnosis: acute psychosis, chronic schizophrenia, suicidal ideation and acute anxiety Most likely diagnosis given after review of the tests above:: Behavioral disorder Admission Indicated Admission indicated?: not indicated Explain why admission is indicated or not indicated:: Stable Admission Request Was there a request for admission?: No Disposition Plan Disposition Plan: other (specify) Discharge Plan Plan Patient Disposition: HOME (Self Care) Discharge Disposition comment: Stable Prescriptions/Referrals Prescriptions/Med Rec: No Action trazodone 100 mg tablet 300 mg PO HS gabapentin 300 mg capsule 300 mg PO .COMPLEX Rx Instructions: 300 mg orally AM DAILY; metformin 500 mg tablet 500 mg PO QMORNING olanzapine 5 mg tablet 5 mg PO QDAY paliperidone 3 mg tablet extended release 24hr 6 mg PO QMORNING acetaminophen 500 mg tablet 500 mg PO 2XD PRN (Reason: pain) trazodone 300 mg tablet 200 mg PO QPM polyethylene glycol 3350 [ClearLax] 17 gram/dose powder PO QDAY ibuprofen 400 mg tablet 400 mg PO 2XD PRN (Reason: fever or pain) hydroxyzine pamoate 25 mg capsule 25 mg PO BID venlafaxine 75 mg capsule,extended release 24hr 225 mg PO QDAY lisinopril 10 mg tablet 10 mg PO QAM Referrals: No Primary/Family,Physician [Primary Care Provider] - In 1 week Problem List Clinical Impression: Behavioral disorder Patient/Caregiver Discharge Instructions Discharge Activity: activity as tolerated Additional Instructions: Thank you for the opportunity for serving you today. You are stable for discharged . You are advised to: Follow-up with your PCP in 1 to 2 days Return to ED for worsening of symptoms Increase oral fluids Take medication as prescribed by your PCP Print Language: Belgian Stand Alone Forms: Nicole Award Info., Patient Portal Info Letter
[2024-10-05 13:57] LABS: Collection Type, Urine Clean Catch; Squamous Epithelial Cell,Urine 0 /hpf (0-5)
[2024-10-05 14:02] LABS: Bilirubin,Urine Negative (Negative); Blood,Urine Negative (Negative); Clarity,Urine Clear (Clear/Hazy); Color,Urine Lt-Yellow (Lt Yel-Yel); Glucose, Urine Negative (Negative); Ketones,Urine Negative (Negative); Leukocyte Esterase,Urine Negative (Negative); Nitrite,Urine Negative (Negative); PH,Urine 6.0 (5.0-7.0); Protein,Urine Negative (Neg - Trace); RBC,Urine 1 /hpf (0-3); Specific Gravity,Urine 1.008 (1.001-1.035); Urobilinogen,Urine Negative mg/dL (0.0-1.0); WBC,Urine < 1 /hpf (0-5)
[2024-10-05 14:06] LABS: Amphetamine/Methamp Scrn,U Negative (Negative); Barbiturate Screen,Urine Negative (Negative); Benzodiazepines Screen,Urine Negative (Negative); Benzoylecgonine Screen, Ur Negative (Negative); Fentanyl Screen,Urine Negative (Negative); Opiate Screen,Urine Negative (Negative); THC Screen,Urine Negative (Negative)
--- NOTE | 2024-10-05 14:21 | PC.CC ---
Patient 64 year-old male who was [facility] Keenan on 515-Hold for Danger to Self and Danger to Others. It was reported by the officer that the patient had punched a door and had the ability of hurting others. Brain made [id number] contact with patient to complete assessment. ASW introduced self, role, and reason for assessment. ASW disclosed limits of confidentiality as well. Patient appeared alert and oriented to self, place, and situation. Patient made appropriate eye contact with this freelance copywriter. Patients mood appeared to euthymic throughout assessment, patient had good insight and judgement. No signs of delusions, paranoid or V/h. Patient reports he was upset earlier today as he did not like the food at the home and was requesting something different. Patient reports he slammed the door and did not punch it as the officers indicated. Patient reports he was not attempting to harm others he was just frustrated. At the time of encounter patient denied suicidal and homicidal ideations, visual and auditory hallucinations. Patient reports he is ready to go back home and knows better to behave. Patient reports he is compliant with his medication and was about to take it when the police picked him up and did not allow him to take his medication. Patient reports he has a mental health diagnosis of schizoaffective disorder bipolar type. Patient receives outpatient mental health services with [facility] and is seen by Dr. Stanton for psychiatric services. Patient takes psychotropic medications: Trazadone 20mg, Zyprexa 30mg, Prozac 10mg, Gabapentin 3x/day 600mg. Patient informed this freelance copywriter he is compliant with all his medications and they are provided by staff at [facility]. ASW made contact with Facility Staff, Farzana Patel to gather collateral information as patient provided verbal consent to make contact. Farzana reports that patient was upset about the food as he was requesting steak 3x/week. She reports he is compliant with outpatient mental health and just had on appointment with his psychiatrist on 09/19/2024. She reports the patient can return to the facility. Farzana Patel requested that if the patient is discharged that patient be provided with a ride as the staff cannot assist with transportation. ASW explored with patient what are some of his coping techniques he can use if he becomes upset Upon clinical consultation with BOND UNDERWRITER, Milvia Ziegler patient does not meet criteria to be on a 5150-hold and the hold will be rescinded. Safety plan established with patient and Farzana. Patient is continue to follow up with his outpatient mental health appointments, take his medication as prescribed, per Farzana, there are not firearms in the home and all medications are locked. Patient will listen to music if he becomes upset. Patient was advised to return to the ED if he begins to have suicidal or homicidal ideations, visual and auditory hallucinations. ASW provided update of hold being rescinded to Dr. Bloom, melter assistant Alicia, bedside ROBBY Puente. ASW to provide a ride to the patient back to [facility]. ?
== END 2024-10-05 15:25 | disposition home or self-care (01) ==
PROVIDERS: Nurse Practitioner Family; Emergency Provider Emergency Medicine
DX: Z65.3 Problems related to other legal circumstances (principal); F20.9 Schizophrenia, unspecified
CPT/HCPCS: 80053; 80307; 80320; 80329; 81001; 85025; 96127; 99283; G0480